=== PATIENT | male | born 1990 | race Hispanic/Latino ===

== ENCOUNTER 2017-12-29 09:12 | Emergency (ER) | payer SELFPAY ==
[~2017-12-29] VITALS: Ht 170.2 cm; Wt 75.0 kg
[~2017-12-29 09:12] MED LIST: BENADRYL25 M1 OR; MEDDOSEPAK OR; NO
[2017-12-29 10:16] LABS: HEMATOCRIT 38.1 % (39.0-50.0); HEMOGLOBIN 12.8 g/dl (14.0-18.0); IMMATURE GRANULOCYTES 0.4 % (0.0-1.0); MEAN CELL VOLUME 87.8 fL CALC (80.0-100.0); MEAN CORPUSCULAR HGB 29.5 pG CALC (26.0-32.0); MEAN CORPUSCULAR HGB CONC 33.6 g/L CALC (32.0-36.0); NEUT# 6.61 thou/uL (1.82-7.42); RED BLOOD COUNT 4.34 mill/uL (4.70-6.10); RED CELL DISTRI WIDTH 12.1 % (11.5-15.5)
[2017-12-29 10:47] LABS: ALBUMIN 4.1 g/dL (3.2-5.0); ALKALINE PHOSPHATASE 92 u/l (38-126); ANION GAP 17 (6-22 (CALC)); BILIRUBIN, TOTAL 1.3 mg/dL (0.0-1.4); BUN 27 mg/dL (9-20); BUN/CREATININE RATIO 18 (12-20 (CALC)); CARBON DIOXIDE 20 mmol/l (22-30); CHLORIDE 99 mmol/l (95-108); CREATININE 1.5 mg/dL (0.7-1.3); GFR 57 ML/MIN (>=60 (CALC)); GFR FOR AFR.AMER. > 60 ML/MIN (>=60 (CALC)); LIPASE 112 u/l (23-300); POTASSIUM 4.3 mmol/l (3.5-5.1); SGOT/AST 33 u/l (17-59); SGPT/ALT 52 u/l (21-72); SODIUM 132 mmol/l (137-146); TOTAL PROTEIN 7.1 g/dL (6.3-8.2)
[2017-12-29 10:52] LABS: INFLUENZA A NONE DETECTED (NONE DETECT); INFLUENZA B NONE DETECTED (NONE DETECT)
[2017-12-29 10:55] LABS: BARBITURATES NEGATIVE (NEGATIVE); COCAINE POSITIVE (NEGATIVE); METHADONE NEGATIVE (NEGATIVE); OXCYCODONE NEGATIVE (NEGATIVE); TETRAHYDROCANNABIONOL POSITIVE (NEGATIVE); TRICYLIC ANTIDEPRESSANTS NEGATIVE (NEGATIVE)
[2017-12-29 11:03] LABS: URINE BLOOD DIPSTICK MODERATE (NEGATIVE); URINE CLARITY CLEAR; URINE COLOR YELLOW; URINE GLUCOSE - DIPSTICK NEGATIVE (NEGATIVE); URINE KETONE TRACE mg/dL (NEGATIVE); URINE LEUK ESTERASE NEGATIVE (NEGATIVE); URINE NITRITE - DIPSTICK NEGATIVE (Negative); URINE PROTEIN - DIPSTICK 100 mg/dL (NEG-TRACE)
[2017-12-29 11:05] LABS: URINE BILIRUBIN - DIPSTICK NEGATIVE (NEGATIVE)
[2017-12-29 11:12] LABS: URINE RBC 0-2 RBC/hpf (0-5)
[2017-12-29 11:13] LABS: URINE COARSE GRANULAR CAST RARE lpf; URINE HYALINE CAST FEW lpf (NONE-RARE); URINE TRANSITIONAL EPI. CELLS FEW hpf
[2017-12-29 13:52] VITALS: BP 130/66
== END 2017-12-29 13:52 | disposition short-term general hospital (02) | DRG 103 ==
LOC: ED 09:12
PROVIDERS: Family Medicine
PROC: 00JU3ZZ Inspection of Spinal Canal, Percutaneous Approach (ICD-10-PCS; principal; 2017-12-29)
DX: R51 Headache (principal); R29.1 Meningismus; R50.9 Fever, unspecified; R11.2 Nausea with vomiting, unspecified; R10.84 Generalized abdominal pain

== ENCOUNTER 2020-05-30 15:52 | Emergency (ER) | payer SELFPAY ==
[~2020-05-30] VITALS: Ht 170.2 cm; Wt 59.1 kg
[2020-05-30] MEDS ORDERED: LORTAB 1010 MG PO (17:07)
[2020-05-30] MEDS ORDERED: BACTRIM DS1 TAB PO (17:07)
[2020-05-30] MEDS ORDERED: KEFLEX500 M1 PO (17:07)
[2020-05-30 18:20] VITALS: BP 132/78
== END 2020-05-30 18:20 | disposition home or self-care (01) | DRG 603 ==
LOC: ED 15:52
PROC: 0H9AXZZ Drainage of Inguinal Skin, External Approach (ICD-10-PCS; principal; 2020-05-30)
DX: L02.214 Cutaneous abscess of groin (principal)